=== PATIENT | male | born 1975 | race Caucasian/White ===

== ENCOUNTER 2023-04-04 08:52 | Outpatient (AMB) | payer OTHER, SELFPAY ==
--- NOTE | 2023-04-04 08:56 | A.OFFVIS_ITS ---
Intake Vital Signs 04/04/23 08:59 Height 5 ft 8.5 in Weight 210 lb BMI 31.5 BP 142/94 H Blood Pressure Location Lt brachial Position Sitting Pulse 79 Intake Visit Reasons: Colonoscopy Screening Intake Note: Patient new consult for 1st pre colonoscopy screening. Patient denies any GI issues. 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 Accompanied by: Self / Same As Patient Allergies No Known Allergies [No Known Allergies*] Allergy (Verified 04/04/23 08:56) Medication List - Last Reconciled 04/04/23 by Skylar Baez PA-C multivitamin 1 tab PO DAILY HPI HPI Comments History of Present Illness Details 48-year-old male referred for index screening colonoscopy He has no GI complaints Normal bowel pattern good appetite No cardiac or respiratory issues No family history GI cancer No nausea, vomiting, hematemesis, hematochezia fever chills PFSH Medical History Hypercholesterolemia Overweight (BMI 25.0-29.9) Surgical History Hx laparoscopic cholecystectomy Family History Maternal Uncle Non-Hodgkin lymphoma Mother No problems noted. Father No problems noted. Brother No problems noted. Son No problems noted. Daughter No problems noted. Social History Housing: House Alcohol intake: current Patient Tobacco Use Status: Never used Tobacco e-Cigarette/Vaping Use: Never Used Second Hand Smoke Exposure: No Current occupational status: employed Cognitive needs: No Hearing needs: No Vision needs: Yes Review of Systems Const All systems reviewed & are unremarkable except as noted in HPI and below Card Denies chest pain and Denies dyspnea Resp Denies dyspnea GI Denies abdominal pain, Denies change in stool character and Denies heartburn Physical Exam Vital Signs: Last Vital Signs Pulse 79 04/04/23 08:59 BP 142/94 H 04/04/23 08:59 BMI result Body Mass Index 31.5 Const General: cooperative, healthy appearing, comfortable and no acute distress Orientation/consciousness: patient oriented x3 Limitations: no limitations Resp Effort & Inspection: normal respiratory effort and able to speak in complete sentences Auscultation: clear to auscultation bilaterally, no rales, no rhonchi and no wheezes Cardio Rate: regular rate Rhythm: regular rhythm Heart sounds: S1 normal heart sound present and S2 normal heart sound present GI Palpation (GI): Soft to palpation and nontender Auscultation: normal bowel sounds Neuro General: patient oriented x3 Extrem General: Yes full ROM Psych Appearance: grossly normal and well kempt Mental Status: mental status grossly normal Speech and movement: Normal speech and movement present and Clear speech present Affect: normal affect Attitude: cooperative Thought process: Normal thought process present Thought content: Normal thought content present Insight: Good insight present (Psych) Judgement: Good judgement present (Psych) Assessment & Plan Assessment & Plan (1) Colon cancer screening: Comment: Index screening colonoscopy no GI complaints no family history GI cancer Code(s): Z12.11 - Encounter for screening for malignant neoplasm of colon Plan: Discussed procedure, indications, rare risks, need for escorted due to anesthesia Plan Index screening colonoscopy MiraLax Gatorade prep Orders: Orders Colonoscopy - GI Use Only Today Z12.11 - Encounter for screening for malignant neoplasm of colon Medications: New bisacodyl (Dulcolax (bisacodyl)) Take 4 tablets by mouth at 12:00pm the day before your procedure. 20 mg (4 x 5 mg) PO ONCE 1 day 4 tabs 0RF colonoscopy prep Z12.11 - Encounter for screening for malignant neoplasm of colon polyethylene glycol 3350 (Miralax) Take as directed by mouth the day before your procedure. 238 grams PO ONCE 1 day 238 grams 0RF laxative effect Patient Instructions: For 48-year-old male referred index screening colonoscopy no GI complaints MiraLax Gatorade prep literature given Encouraged to call questions or concerns Appreciate the opportunity assist in the care this pleasant Gent Coding Level of Care Code New Pt Level 3 (96883) Diagnoses Colon cancer screening Z12.11 Time Spent (min) 25
[2023-04-04 08:59] VITALS: BP 142/94; PULSE 79; BMI 31.5
--- NOTE | 2023-04-04 09:00 | MHC.OFFVIS ---
Intake Intake Visit Reasons: Colonoscopy Screening Allergies No Known Allergies [No Known Allergies*] Allergy (Verified 04/04/23 08:56) PFSH Medical History (Updated 02/10/23 @ 10:57 by Prasad Briseno MD) Hypercholesterolemia Overweight (BMI 25.0-29.9) Surgical History Hx laparoscopic cholecystectomy Family History Maternal Uncle Non-Hodgkin lymphoma Mother No problems noted. Father No problems noted. Brother No problems noted. Son No problems noted. Daughter No problems noted. Social History Housing: House Alcohol intake: current Patient Tobacco Use Status: Never used Tobacco e-Cigarette/Vaping Use: Never Used Second Hand Smoke Exposure: No Current occupational status: employed Cognitive needs: No Hearing needs: No Vision needs: Yes Coding Diagnoses
== END 2023-04-04 09:26 | disposition home or self-care (01) ==
PROVIDERS: PCP Internal Medicine; Visit Provider Physician Assistant
DX: Z01.818 Encounter for other preprocedural examination (principal); Z12.11 Encounter for screening for malignant neoplasm of colon
CPT/HCPCS: S0285

== ENCOUNTER → 2023-04-04 08:52 | Outpatient (BNVA) | payer OTHER, SELFPAY | PROVIDERS: PCP Internal Medicine; Visit Provider Physician Assistant ==

== ENCOUNTER 2023-07-11 07:26 | Day surgery (SDC) | payer OTHER, SELFPAY ==
[2023-07-07 14:47] VITALS: BMI 31.5
--- NOTE | 2023-07-11 07:38 | P.HPSUR_ITS ---
Pre-Procedural Eval Section A Date of Service: 07/11/23 The patient is an INPATIENT: No The History & Physical has been completed within 30 days and I have reviewed it.: No Section B Chief Complaint: Colon cancer screening Relevant Family History (Specify if Yes): No Relevant Social History: None Present Medications: see Short Stay Collaborative assessment Medical History: Significant History (Hypercholesterolemia Overweight (BMI 25.0- 29.9)) History of Previous Operations: Relevant previous surgery/procedure and date(s) (History of laparoscopy cholecystectomy) Allergies: Allergies Allergy/AdvReac Type Severity Reaction Status Date / Time No Known Allergies Allergy Verified 04/04/23 08:56 [No Known Allergies*] Plan Diagnosis/Plan: Unchanged I have reviewed the history and physical and performed a pertinent physical examination on my patient. No changes have occurred unless specified. Time Spent With Patient Time: Total time managing care of this patient today ____ minutes.
[2023-07-11 07:46] VITALS: BP 143/100; PULSE 95; RESP 20; TEMP 36.2; O2SAT 95
--- NOTE | 2023-07-11 08:06 | P.CONAN_ITS ---
[facility] Active Problems Active Problems: All Active Problems (Updated 04/04/23 @ 09:51 by Skylar Baez PA-C) Colon cancer screening (Acute) Tinea versicolor (Acute) Physical exam, annual (Acute) Overweight (BMI 25.0-29.9) (Acute) Hypercholesterolemia (Acute) Past Medical History Medical History (Updated 04/04/23 @ 09:51 by Skylar Baez PA-C) Overweight (BMI 25.0-29.9) Hypercholesterolemia Family History Family History Maternal Uncle Non-Hodgkin lymphoma Mother No problems noted. Father No problems noted. Brother No problems noted. Son No problems noted. Daughter No problems noted. Family history of problems with anesthesia: No Surgical History Surgical History (Updated 07/07/23 @ 14:47 by Shira Lamb RN) Hx laparoscopic cholecystectomy History of Problems with Anesthesia: No Social History Social History Housing: House Alcohol intake: current Patient Tobacco Use Status: Never used Tobacco e-Cigarette/Vaping Use: Never Used Second Hand Smoke Exposure: No Advance Directives: No Advance Directives Information Provided: Yes Current occupational status: employed Cognitive needs: No Hearing needs: No Vision needs: Yes Meds Allergies Allergy/AdvReac Type Severity Reaction Status Date / Time No Known Allergies Allergy Verified 04/04/23 08:56 [No Known Allergies*] Active Medications: Current Medications Lactated Ringer's (Lr) 1,000 mls @ 50 mls/hr IVCONT .Q20H [facility] Home Medications Medication Instructions Recorded Confirmed Last Taken Type multivitamin 1 tab PO DAILY 06/03/20 07/07/23 Unknown History Exam Exam Date and Time: July 11, 2023 08 Height,Weight and Vital Signs: Height 5 ft 8.5 in Weight 95.254 kg Last Vital Signs Temp 97.2 F 07/11/23 07:46 Pulse 95 07/11/23 07:46 Resp 20 07/11/23 07:46 BP 143/100 H 07/11/23 07:46 Pulse Ox 95 07/11/23 07:46 O2 Del Method Room Air 07/11/23 07:46 Airway Mallampati Class: II TM Dist: >3cm Neck ROM: Full Heart: rrr Lungs: cta Assessment and Plan Assessment Anesthesia Assessment: Anesthesia Plan Discussed and Chart Reviewed Final Anesthetic Review Family History of Problems with Anesthesia: No History of Problems with Anesthesia: No NPO: Yes ASA Class: I Final Preanesthetic Review: No Changes in Pt Med Stat, Meds/Allgs Chart Reviewed and Consent Obtained/Reviewed Patient Risk: Intermediate Procedure Risk: Intermediate Anesthetic Plan Anesthetic Plan: MAC: Disposition: Standard PACU
[2023-07-11] MEDS: Lactated Ringers 1,000 ML 50 ML IVCONT (08:32)
--- NOTE | 2023-07-11 08:37 | W.PM.OPN ---
Operative Note Operative Note Date of Service: 07/11/23 Narrative: COLONOSCOPY TILL CECUM Pre-op diagnosis: Colon cancer screening (1st colonoscopy) Post-op diagnosis:? Diverticulosis, hemorrhoids Endoscopist:? Douglas Enriquez MD Anesthesia:?MAC Consent: Indications for the procedure and potential complications of bleeding, perforation, reaction to medications and missed diagnosis were discussed with the patient and informed consent was obtained. Instrument: Olympus PCF H 190 L variable stiffness pediatric colonoscope Monitoring: Vital signs and clinical assessment, intermittent blood pressure monitoring, continuous EKG monitoring, Pulse oximetry and Carbon Dioxide monitoring were done throughout the procedure. Please see anesthesia flowsheet. Colon withdrawl time was 13 minutes. Procedure: The patient was placed in the left lateral decubitis position and pre-procedure medications were administered. After a digital rectal examination of the ano-rectum, the video colonoscope was inserted into the rectum and advanced through the colon to the cecum. The colonoscope was slowly withdrawn in a retrograde panoramic fashion and the colon mucosa was carefully examined including a retroflexed view of the rectum. Findings and interventions are described below. Procedure Difficulty: Without difficulty Findings: Terminal Ileum: Not evaluated Cecum: Normal Ascending Colon: Normal Transverse Colon: Normal Descending Colon: Normal Sigmoid Colon: Moderate diverticulosis Rectum: Normal Ano-rectum: Moderate internal hemorrhoids Colon preparation: Good Impression and Post Procedure Diagnosis: Colonoscopy Findings: No polyps were detected Moderate diverticulosis seen in the sigmoid colon Moderate hemorrhoids on retroflexed exam. Plan: Patient has an appointment on 07/25/23 in the [facility] with [facility]. Repeat Colonoscopy in 10 years. Diverticulosis handout was given in the discharge area
[2023-07-11 09:10] VITALS: BP 102/57; PULSE 90; RESP 15; TEMP 36.2; O2SAT 92
[2023-07-11 09:25] VITALS: BP 105/77; PULSE 94; RESP 17; TEMP 36.3; O2SAT 92
== END 2023-07-11 10:31 | disposition home or self-care (01) ==
PROVIDERS: PCP Internal Medicine; Visit Provider Internal Medicine Gastroenterology
PROC: 0DJD8ZZ Inspection of Lower Intestinal Tract, Via Natural or Artificial Opening Endoscopic (ICD-10-PCS; CPT 45378; principal; 2023-07-11 08:30)
DX: Z12.11 Encounter for screening for malignant neoplasm of colon (principal); K57.30 Diverticulosis of large intestine without perforation or abscess without bleeding; K64.8 Other hemorrhoids; E78.00 Pure hypercholesterolemia, unspecified; Z90.49 Acquired absence of other specified parts of digestive tract; Z79.899 Other long term (current) drug therapy
CPT/HCPCS: 45378; J2704

== ENCOUNTER → 2023-07-11 07:26 | Outpatient (BNV) | payer OTHER, SELFPAY | PROVIDERS: PCP Internal Medicine; Visit Provider Internal Medicine Gastroenterology | DX: Z12.11 Encounter for screening for malignant neoplasm of colon (principal); K57.30 Diverticulosis of large intestine without perforation or abscess without bleeding; K64.8 Other hemorrhoids | CPT/HCPCS: 45378 ==

== ENCOUNTER 2024-05-03 15:36 | Outpatient (AMB) | payer BC, SELFPAY ==
--- NOTE | 2024-05-03 15:42 | MHC.PC.OV ---
Vital Signs 05/03/24 15:51 Height 5 ft 8.5 in Weight 214 lb 8 oz BMI 32.1 BP 136/80 Blood Pressure Location Lt brachial Position Sitting Respiration 16 Pulse 84 Pulse Source Pulse Oximeter Temp 97.3 F Temp Source Tympanic Pulse Oximetry (%) 95 Oxygen Delivery Method Room Air Intake Visit Reasons: Xfer care from Dr. Briseno. Intake Note: Establish care Allergies No Known Allergies [No Known Allergies*] Allergy (Verified 05/03/24 15:43) Medication List - Last Reconciled 05/03/24 by Rasheed Mederos MD multivitamin 1 tab PO DAILY Tobacco use date assessed: 05/03/24 Dental Screening Dental Screen Date: 05/03/24 Did you have a dental visit in the last 12 months?: Yes Did you have a dental problem in the last 6 months where you did not have access to dental care?: No Was dental information given to patient?: Patient has dentist HPI Xfer care from Dr. Briseno. HPI Details Transfer of Care ?? Prior PCP:?Dr. Briseno Last office visit/CPE:?Last CPE 02/18 Acute issue(s):? Stye L elbow tendonitis ?? PMHx:?L Inguinal hernia. SurgHx:?L Inguinal hernia, L3-4 discectomy, GB. FHx:? Dad: DM. Uncle: NHL. GF: Emphysema SocHx: Nonsmoker. EtOH: wine 1-2 about 2 x a week. No drugs PFSH Medical History (Updated 05/03/24 @ 16:12 by Emigdio Petersen) Overweight (BMI 25.0-29.9) Hypercholesterolemia Surgical History (Updated 07/07/23 @ 14:47 by Shira Lamb RN) Hx laparoscopic cholecystectomy Family History Maternal Uncle Non-Hodgkin lymphoma Mother No problems noted. Father No problems noted. Brother No problems noted. Son No problems noted. Daughter No problems noted. 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 1. Little interest or pleasure in doing things: not at all 2. Feeling down, depressed, or hopeless: not at all 3. Trouble falling or staying asleep, or sleeping too much: not at all 4. Feeling tired or having little energy: not at all 5. Poor appetite or overeating: not at all 6. Feeling bad about yourself - or that you are a failure or have let yourself or your family down: not at all 7. Trouble concentrating on things, such as reading the newspaper or watching television: not at all 8. Moving or speaking so slowly that other people could have noticed. Or the opposite - being so fidgety or restless that you have been moving around a lot more than usual: not at all 9. Thoughts that you would be better off or of hurting yourself in some way: not at all Total score: 0 Depression Screening Interpretation: Negative Depression Screening Done: Yes 01600 - PHQ-9 Billing: Yes Source: Developed by Drs. Noel Pascal, Radha Robertson, Rahul Brooks and colleagues, with an educational malika from [employer] 1. Thrive Questionnaire Date Thrive assessed: 05/03/24 I am a: Patient What is your living situation today?: I have a steady place to live Within the past 12 months, did the food you bought not last and you didn't have the money to get more?: Never true Within the past 12 months, did you worry whether your food would run out before you got money to buy more?: Never true Do you have trouble paying for medicines?: No Do you have trouble getting transportation to medical appointments?: No Do you have trouble paying your heating and electricity bill?: No Do you have trouble taking care of your child, family member or friend?: No Do you have trouble with day-to-day activities such as bathing, preparing meals, shopping, managing finances, etc.?: No Are you currently unemployed and looking for a job?: No Are you interested in more education?: No Please select the resources that you would like help with: None Currently or been in a relationship where the following occur: No concerns reported THRIVE Score: 0 AUDIT C Alcohol Use Questionnaire (AUDIT-C) 1. How often do you have a drink containing alcohol?: 2-3 times a week 2. How many drinks containing alcohol do you have on a typical day when you are drinking?: 1 or 2 3. How often do you have six or more drinks on one occasion?: Weekly Total Score: 6 Score Reviewed/Action Taken: Yes MONET-7 AMB Questionnaire MONET-7 Date MONET - 7 assessed: 05/03/24 Feeling nervous, anxious, or on edge: 0 = Not at all Not being able to stop or control worryin = Not at all Worrying too much about different things: 0 = Not at all Trouble relaxin = Not at all Being so restless that it is hard to sit still: 0 = Not at all Becoming easily annoyed or irritable: 0 = Not at all Feeling afraid as if something awful might happen: 0 = Not at all Total MONET-7 score (0-4 normal; 5-9 mild; 10-14 moderate; 15-21 severe): 0 Source: Developed by Drs. Noel Pascal, Radha Robertson, Rahul Brooks and colleagues, with an educational malika from [employer] 1. MONET-7 Assessment Billing MONET-7 Assessment Tool: MONET-7 Assessment 20182 Review of Systems Const Denies chills, Denies fatigue, Denies fever(s), Denies headache(s) and Denies weakness ENT Denies dizziness and Denies headache(s) Card Denies chest pain, Denies lightheadedness, Denies dyspnea and Denies other (Palpitations) Resp Denies cough, Denies dyspnea, Denies wheezing and Denies other ( shortness of breath) Musc Denies numbness and Denies tingling Neuro Denies dizziness, Denies headache(s), Denies numbness, Denies tingling, Denies paresthesias and Denies weakness Psych Denies anxiety and Denies depression Endo Denies fatigue Aller/Immun Denies wheezing Physical exam (Primary Care) Vital Signs: Last Vital Signs Temp 97.3 F 05/03/24 15:51 Pulse 84 05/03/24 15:51 Resp 16 05/03/24 15:51 BP 136/80 05/03/24 15:51 Pulse Ox 95 05/03/24 15:51 Oxygen Delivery Method Room Air 05/03/24 15:51 BMI result Body Mass Index 32.1 Tobacco/Smoking Status: Tobacco use Status Tobacco use date assessed 05/03/24 05/03/24 15:50 Patient Tobacco Use Status Never used Tobacco 05/03/24 15:50 e-Cigarette/Vaping Use Never Used 05/03/24 15:50 PHQ-9: PHQ-9 Score PHQ-9: Total score 0 05/03/24 16:01 Depression Screening Interpretation: Negative Thrive Assessment: Date of Thrive Assessment Date Thrive assessed 05/03/24 05/03/24 15:50 Currently or been in a relationship where the following occur: No concerns reported Const General: no acute distress and well developed Nutritional Appearance: well nourished Orientation/consciousness: patient oriented x3 HENMT Head: Yes normocephalic and Yes atraumatic Eyes General: appearance normal, both eyes and all related structures Pupils: Equal, round and reactive pupils present EOM: EOMs intact bilaterally Resp Effort & Inspection: normal respiratory effort Auscultation: clear to auscultation bilaterally Cardio Rate: regular rate Rhythm: regular rhythm Heart sounds: S1 normal heart sound present, S2 normal heart sound present, no gallops, no murmurs and no rubs Neuro General: patient oriented x3 and gait normal Cranial nerves: Yes Equal, round and reactive pupils present Psych Affect: normal affect Assessment and Plan Assessment & Plan (1) Tendonitis of elbow, left: Code(s): M77.8 - Other enthesopathies, not elsewhere classified Plan: Recommended?relative?rest Ice/heat NSAIDs He?can?use?a?forearm?band/brace If?not?improving?he?will?let?me?know?and?we?can?start?occupational?therapy (2) Stye: Code(s): H00.019 - Hordeolum externum unspecified eye, unspecified eyelid Plan: Stye?at?left?eye He?is?already?undergoing?treatment?with?his?ophthalmology Follow-up?with?your?eye?doctor?as?recommended (3) History of inguinal hernia: Code(s): Z87.19 - Personal history of other diseases of the digestive system Plan: History?of?left?inguinal?hernia?repair Patient?notes?some?twinge?of?discomfort?at?right?inguinal?region?but?declines?treatment?or?investigation?today He?can?make?an separate?appointment?to?evaluate?further?if?this?worsens. Will?follow-up?further?at?his?upcoming?physical. (4) Laboratory exam ordered as part of routine general medical examination: Code(s): Z00.00 - Encounter for general adult medical examination without abnormal findings Plan: Check?labs Orders: Orders Comprehensive [place]. Panel Fast Today Z00.00 - Encounter for general adult medical examination without abnormal findings TSH reflex Free T4 Today Z00.00 - Encounter for general adult medical examination without abnormal findings Vitamin B12 and Folate Today E53.8 - Deficiency of other specified B group vitamins Lipid Panel Today Z00.00 - Encounter for general adult medical examination without abnormal findings Microalbumin, Random (w Creat) Today I10 - Essential (primary) hypertension Prostate Specific Antigen Scr Today Z12.5 - Encounter for screening for malignant neoplasm of prostate UA and rflx microscopic Today Z00.00 - Encounter for general adult medical examination without abnormal findings Vitamin D 25-OH Total Today E55.9 - Vitamin D deficiency, unspecified Coding Level of Care Code New Pt Level 3 (48979) Diagnoses Tendonitis of elbow, left M77.8 Stye H00.019 History of inguinal hernia Z87.19 Laboratory exam ordered as part of routine general medical examination Z00.00 Additional Codes MONET-7 Assessment Billing - MONET-7 Assessment Tool: MONET-7 Assessment 26982 ([id number])
[2024-05-03 15:51] VITALS: BP 136/80; PULSE 84; RESP 16; TEMP 36.3; O2SAT 95; BMI 32.1
== END 2024-05-03 16:18 | disposition home or self-care (01) ==
PROVIDERS: PCP Family Medicine; Visit Provider Family Medicine
DX: M77.8 Other enthesopathies, not elsewhere classified (principal); H00.016 Hordeolum externum left eye, unspecified eyelid; Z87.19 Personal history of other diseases of the digestive system
CPT/HCPCS: 99213

== ENCOUNTER 2024-07-10 07:39 | Outpatient (REF) | payer BC, SELFPAY ==
--- NOTE | ~2024-07-10 | US_ITS ---
EXAMINATION: US RIGHT LOWER QUADRANT, LIMITED/FOLLOW UP CLINICAL INFORMATION: Unilateral right lower quadrant hernia. History of left inguinal hernia repair with new right lower quadrant pain. COMPARISON: None available. TECHNIQUE: High frequency linear ultrasound transducer was used to examine the area of clinical concern. Images were performed both in the supine and upright positions. Valsalva maneuvers were also utilized. FINDINGS: A right groin hernia is seen measuring about 3.6 x 2.8 cm. This appears to contain predominantly fat, although I cannot exclude the presence of bowel. US/US pelvic limited IMPRESSION: Right groin hernia. Electronically signed by: Jean Tyson MD 07/11/2024 12:41 PM [facility]
== END 2024-07-10 07:40 | disposition home or self-care (01) ==
LOC: HO.US 07:39
PROVIDERS: PCP Family Medicine; Visit Provider Family Medicine
DX: K40.90 Unilateral inguinal hernia, without obstruction or gangrene, not specified as recurrent (principal)
CPT/HCPCS: 76857

== ENCOUNTER 2024-08-09 09:21 | Outpatient (AMB) | payer BC, SELFPAY ==
--- NOTE | 2024-08-09 09:24 | A.OFFVIS_ITS ---
Vital Signs 08/09/24 09:35 Height 5 ft 8.5 in Weight 221 lb 8 oz BMI 33.2 BP 160/99 H Blood Pressure Location Lt brachial Position Sitting Pulse 83 Intake Visit Reasons: right groin hernia Intake Note: Patient is seen in office for evaluation of a right groin hernia. Pt c/o: feels a lump on the right groin, worse for the past 5 wks, onset 3 months, does heavy lifting for work, reducible, had prior one fix on the left side us pelvis:07/10/24 [employer] Facility Supervisor Required: No Accompanied by: Self / Same As Patient Allergies No Known Allergies [No Known Allergies*] Allergy (Verified 08/09/24 09:30) Medication List - Last Reconciled 08/09/24 by Marcel Rivera MD multivitamin 1 tab PO DAILY HPI Comments Details: 49-year-old male patient presenting for evaluation of a right inguinal hernia which he 1st noted approximately 3 months ago but feels over the past month has increased in severity. 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 The pain seems to increase with lifting and prolonged standing. He is currently wearing a truss which seems to help with the discomfort. He reports a previous history of a left inguinal hernia repaired approximately 10 years ago. He denies any symptoms in the left groin. Denies nausea, vomiting, fever, chills, diarrhea or constipation. FOR[facility] Medical History Overweight (BMI 25.0-29.9) Hypercholesterolemia Surgical History Hx of vasectomy Hx of discectomy Hx of left inguinal hernia repair Hx laparoscopic cholecystectomy Family History Maternal Uncle Non-Hodgkin lymphoma Mother No problems noted. Father No problems noted. Brother No problems noted. Son No problems noted. Daughter No problems noted. 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 Cognitive needs: No Hearing needs: No Vision needs: Yes Review of Systems Const All systems reviewed & are unremarkable except as noted in HPI and below Physical Exam Vital Signs: Last Vital Signs Pulse 83 08/09/24 09:35 BP 160/99 H 08/09/24 09:35 BMI result Body Mass Index 33.2 Const General: cooperative and no acute distress Nutritional Appearance: well nourished Orientation/consciousness: patient oriented x3 Limitations: no limitations HEENT Head: Yes normocephalic and Yes atraumatic Ears: hearing grossly normal bilaterally Resp Effort & Inspection: normal respiratory effort, no audible wheezes, no cough and no respiratory distress Cardio Jugular venous distension: no JVD GI Other: Palpable right inguinal hernia noted in the standing position with Valsalva maneuvers. Hernia easily reduces with light pressure. No hernia noted in the left groin. Inspection: Yes normal to inspection Skin Other: Warm, dry, no rash Neuro General: patient oriented x3 Extrem General: Yes no clubbing, cyanosis or edema Assessment & Plan Assessment & Plan (1) Right inguinal hernia: Code(s): K40.90 - Unilateral inguinal hernia, without obstruction or gangrene, not specified as recurrent Category: Medical Plan 49-year-old male patient presenting for evaluation of a right inguinal hernia. This has been progressing over the past 3 months and is now causing more discomfort. On examination he does indeed have a reducible right inguinal hernia. I recommended repair of this right inguinal hernia as an elective procedure using mesh. I reviewed the procedure, risks, and alternatives of repair of the right inguinal hernia with mesh he consents to the surgery. Coding Level of Care Code New Pt Level 4 (24473) Diagnoses Right inguinal hernia K40.90
[2024-08-09 09:35] VITALS: BP 160/99; PULSE 83; BMI 33.2
== END 2024-08-09 09:46 | disposition home or self-care (01) ==
PROVIDERS: PCP Family Medicine; Visit Provider Surgery
DX: K40.90 Unilateral inguinal hernia, without obstruction or gangrene, not specified as recurrent (principal)
CPT/HCPCS: 99204

== ENCOUNTER 2024-08-24 13:43 | Outpatient (AMB) | payer BC, SELFPAY ==
--- OUTSIDE RECORDS SUMMARY | 2024-08-24 13:45 | XMS_ITS | Data Portability ---
Author Organization [facility], , [facility] Address [address] [place] [address] Assessment No assessment recorded. Plan of Treatment Reminders Order Date Submit Date Provider Last Modified By Organization Details Last Modified Time Details Appointments None record ed. Lab None record ed. Referral None record ed. Procedures None record ed. Surgeries None record ed. Imaging None record ed. Medication Orders None record ed. Patient TargetsNo targets recorded. Patient InstructionsNo instructions recorded. Reason for Referral None Reported. Problems Name Problem SNOMED Code Status Onset Date Resolution Date Notes Provider Name and Address Organization Details Recorded Time [facility] 17920199 Active 004 Not Available [facility] 03:12:28 Problem Notes None recorded. Medical Equipment None Reported. Vitals None Recorded Social History None recorded. Functional Status None recorded. Mental Status None recorded. Family History Nothing Reported. Medical History No medical history recorded. Past Encounters Encounter ID Performer Location Encounter Start Date Encounter Closed Date Diagnosis/Indication Diagnosis SNOMED-CT Code Diagnosis ICD10 Code [id number] Physical [address] [address] 07/08/2004 08:56:21 07/09/2004 08:30:03 [id number] [address] 07/13/2004 08:20:23 07/13/2004 08:34:18 [id number] Physical [facility], [address] [address] 07/15/2004 13:57:45 09/18/2008 02:02:29 [id number] Physical [address] [address] 07/20/2004 08:08:17 07/20/2004 08:36:34 [id number] [address] [address] 07/22/2004 08:32:24 09/18/2008 02:02:29 Health Concerns Section Related Observation LastModified by Organization Detai ls LastModified Time None Recorded Concern Status LastModified by Organization Details LastModified Time None Recorded Advance Directives Directive None Recorded Payers Encounter Date Sequence Insurance Name Policy Number Policy Howard Covered Member ID Howard Member ID Guarantor Name 07/08/2004 2 [facility] [id number] Marco Monica [id number] Marco Monica 07/13/2004 1 [facility] ([facility]) [id number] Marco Monica [id number] Marco Monica 07/15/2004 1 [facility] ([facility]) [id number] Marco Monica [id number] Marco Monica 07/20/2004 1 [facility] ([facility]) [id number] Marco Monica [id number] Marco Monica 07/22/2004 1 [facility] ([facility]) [id number] Marco Monica [id number] Marco Monica
--- NOTE | 2024-08-24 14:25 | AM.OFFWIN_ITS ---
Intake Vital Signs 08/24/24 14:26 Weight 102.058 kg BP 140/106 H Blood Pressure Location Rt brachial Position Sitting Pulse 83 Pulse Source Pulse Oximeter Pulse Oximetry (%) 95 Oxygen Delivery Method Room Air Intake Visit Reasons: EP-cough Intake Note: Patient here for cough that has been present for about 3 weeks. Patient Tobacco Use Status: Never used Tobacco Allergies No Known Allergies [No Known Allergies*] Allergy (Verified 08/24/24 14:26) Do you need a note to return to daycare/school/sports/work: No HPI HPI Comments History of Present Illness Details 1431 49 year old male presents w/ productive cough X 3 weeks not improving. He reports a few weeks ago it felt like it was getting better, however, seems to actually be worsening. No sick contacts. Denies CP, JI, vision changes, dizziness, weakness, n/v/abd pain/ diarrhea, fevers chills PE benign Hx and pe concerning for bronchitis. Unlikely PE, acs, dissection, AAA. HTN likely due to acute bronchitis unlikely hypertensive urgency/emergency no signs of stroke Plan- atbx, prednsione, inhaler. Sx ongoign > 1 week no indication for viral testing. [facility] Medical History Overweight (BMI 25.0-29.9) Hypercholesterolemia Surgical History Hx of vasectomy Hx of discectomy Hx of left inguinal hernia repair Hx laparoscopic cholecystectomy Family History Maternal Uncle Non-Hodgkin lymphoma Mother No problems noted. Father No problems noted. Brother No problems noted. Son No problems noted. Daughter No problems noted. 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 Oriented X3.? No acute distress.? Head: Normocephalic, atraumatic, no step-offs or deformities Eyes: Pupils equal, round and reactive to light.? CVS: Normal heart rate and rhythm.? Pulses normal.? Respiratory: No respiratory distress.? Breath sounds normal.? Abdomen: Soft and nontender.? Skin: Skin warm and dry.? Normal skin color.? Normal skin turgor.? Extremities: No lower extremity edema.? No calf ttp. 5/5 strength to bilateral upper and lower extremities Neuro: Oriented X 3.? No motor deficit.? No sensory deficit. CN 2-12 intact Assessment & Plan Assessment & Plan (1) Bronchitis: Code(s): J40 - Bronchitis, not specified as acute or chronic Plan Take your medications as prescribed. If you were prescribed antibiotics today, it is important that you take your medication to their entirety, do not skip any doses, do not finish them early. Follow-up with your primary care provider this week. Return to the emergency department with new or worsening symptoms. In case of emergency call 911 Medications: New benzonatate 100 mg PO BID PRN 14 caps 0RF cough doxycycline hyclate 100 mg PO BID 14 caps 0RF 7 days prednisone 40 mg (2 x 20 mg) PO DAILY 10 tabs 0RF 5 days albuterol sulfate 90 mcg/actuation 2 puffs inhalation Q6H PRN 6.7 grams 0RF shortness of breath or wheezing Coding Level of Care Code Est Pt Level 3 (26427) Diagnoses Bronchitis J40
[2024-08-24 14:26] VITALS: BP 140/106; PULSE 83; O2SAT 95
== END 2024-08-24 15:12 | disposition home or self-care (01) ==
PROVIDERS: PCP Family Medicine; Visit Provider Physician Assistant
DX: J40 Bronchitis, not specified as acute or chronic (principal)

== ENCOUNTER → 2024-08-24 13:43 | Outpatient (BNVA) | payer BC, SELFPAY | PROVIDERS: PCP Family Medicine; Visit Provider Physician Assistant ==

== ENCOUNTER 2024-09-05 09:13 | Day surgery (SDC) | payer BC, SELFPAY ==
[2024-09-03 11:12] VITALS: BMI 33.3
--- NOTE | 2024-09-04 08:57 | HO.ANESPROP2 ---
Documented by User: Liliane Beltran NP 09/04/24 08:57 HPI - Anesthesia Eval Consult details Narrative: 49yo M for Right Open Hernia Inguinal Reducible with mesh PMFSH Active Problems Active Problems: All Active Problems Right inguinal hernia (Acute) Left inguinal hernia (Acute) Laboratory exam ordered as part of routine general medical examination (Acute) History of inguinal hernia (Acute) Tendonitis of elbow, left (Acute) Stye (Acute) Colon cancer screening (Acute) Tinea versicolor (Acute) Physical exam, annual (Acute) Overweight (BMI 25.0-29.9) (Acute) Hypercholesterolemia (Acute) Past Medical History Medical History Overweight (BMI 25.0-29.9) Hypercholesterolemia Family History Family History Maternal Uncle Non-Hodgkin lymphoma Mother No problems noted. Father No problems noted. Brother No problems noted. Son No problems noted. Daughter No problems noted. Family history of problems with anesthesia: No Surgical History Surgical History H/O colonoscopy Hx of vasectomy Hx of discectomy Hx of left inguinal hernia repair Hx laparoscopic cholecystectomy History of Problems with Anesthesia: No Social History Social History Housing: House Are you a primary hospice care consultant to a significant other at home: No Do you presently have visiting nurse or other home services: No Alcohol intake: current Alcohol intake frequency: holidays/special occasions only Patient Tobacco Use Status: Never used Tobacco e-Cigarette/Vaping Use: Never Used Second Hand Smoke Exposure: No Use of substances other than those prescribed or required for medical reasons: No Have you been hit, kicked, punched, or otherwise hurt by someone within the past year? 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 Cognitive needs: No Hearing needs: No Vision needs: Yes Meds Allergies Allergy/AdvReac Type Severity Reaction Status Date / Time No Known Allergies Allergy Verified 09/05/24 09:40 [No Known Allergies*] Home Medications ?Medication ?Instructions ?Recorded ?Confirmed ?Last Taken ?Type multivitamin 1 tab PO DAILY 06/03/20 09/03/24 Unknown History Exam Height,Weight and Vital Signs: Height 5 ft 8.5 in Weight 100.698 kg Assessment and Plan Assessment Anesthesia Assessment: Chart Reviewed Final Anesthetic Review Family History of Problems with Anesthesia: No History of Problems with Anesthesia: No Documented by User: Aracelis Su MD 09/05/24 12:05 PMFSH Past Medical History Medical History Overweight (BMI 25.0-29.9) Hypercholesterolemia Family History Family History Maternal Uncle Non-Hodgkin lymphoma Mother No problems noted. Father No problems noted. Brother No problems noted. Son No problems noted. Daughter No problems noted. Surgical History Surgical History H/O colonoscopy Hx of vasectomy Hx of discectomy Hx of left inguinal hernia repair Hx laparoscopic cholecystectomy Social History Social History Housing: House Are you a primary hospice care consultant to a significant other at home: No Do you presently have visiting nurse or other home services: No Alcohol intake: current Alcohol intake frequency: holidays/special occasions only Patient Tobacco Use Status: Never used Tobacco e-Cigarette/Vaping Use: Never Used Second Hand Smoke Exposure: No Use of substances other than those prescribed or required for medical reasons: No Have you been hit, kicked, punched, or otherwise hurt by someone within the past year? 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 Cognitive needs: No Hearing needs: No Vision needs: Yes Meds Allergies Allergy/AdvReac Type Severity Reaction Status Date / Time No Known Allergies Allergy Verified 09/05/24 09:40 [No Known Allergies*] Home Medications ?Medication ?Instructions ?Recorded ?Confirmed ?Last Taken ?Type multivitamin 1 tab PO DAILY 06/03/20 09/03/24 Unknown History Exam Airway Mallampati Class: II TM Dist: >3cm Neck ROM: Full Loose/Missing/Broken Teeth: No Heart: RRR Lungs: CTA Assessment and Plan Assessment Anesthesia Assessment: Anesthesia Plan Discussed Final Anesthetic Review NPO: Yes ASA Class: II Final Preanesthetic Review: Meds/Allgs Chart Reviewed, Consent Obtained/Reviewed and Anes Risks/Benef Reviewed Patient Risk: Low Procedure Risk: Low Anesthetic Plan Anesthetic Plan: GA Disposition: Standard PACU
--- OUTSIDE RECORDS SUMMARY | 2024-09-05 09:17 | XMS_ITS | Data Portability ---
Author Organization [facility], , [facility] Address [address] [place] [address] Assessment No assessment recorded. Plan of Treatment [...] and Address Organization Details Recorded Time Sci[facility]a [id number] Active 004 Not Available [facility] 3 03:12:28 Problem Notes None recorded. Medical Equipment None Reported. Vitals None Recorded Social History None recorded. Functional Status None recorded. Mental Status None recorded. Family History Nothing Reported. Medical History No medical history recorded. Past Encounters Encounter ID Performer Location Encounter Start Date Encounter Closed Date Diagnosis/Indication Diagnosis SNOMED-CT Code Diagnosis ICD10 Code Diagnosis Note [id number] Physical [address] [address] 07/08/2004 08:56:21 07/09/2004 08:30:03 [id number] Physical [address] [address] 07/13/2004 08:20:23 07/13/2004 08:34:18 [id number] Physical [facility], [address] [address] 07/15/2004 13:57:45 09/18/2008 02:02:29 [id number] Physical [facility], [address] [address] 07/20/2004 08:08:17 07/20/2004 08:36:34 [id number] Physical [facility], [address] [address] 07/22/2004 08:32:24 09/18/2008 02:02:29 Health Concerns Section Related Observation LastModified by Organization Detai ls LastModified Time None Recorded Concern Status LastModified by Organization Details LastModified Time None Recorded Advance Directives Directive None Recorded Payers Encounter Date Sequence Insurance Name Policy Number Policy Howard Covered Member ID Howard Member ID Guarantor Name 07/08/2004 2 [facility] [id number] Marco Monica [id number] Marco Monica 07/13/2004 1 [facility] ([facility] [id number] Marco Monica [id number] Marco Monica 07/15/2004 1 [facility] ([facility] [id number] Marco Monica [id number] Marco Monica 07/20/2004 1 [facility] ([facility] [id number] Marco Monica [id number] Marco Monica 07/22/2004 1 [facility] ([facility]) [id number] Marco Monica [id number] Marco Monica
[2024-09-05 09:42] VITALS: BMI 32.5
[2024-09-05] MEDS: Lactated Ringers 1,000 ML 100 ML IVCONT (10:19)
--- NOTE | 2024-09-05 11:33 | MHC.SHP ---
Pre-Procedural Eval Section A - 24 Hr Update-Section A only Date of Service: 09/05/24 The patient is an INPATIENT: No Changes since office visit: Yes Patient answered all questions; No Cold of Flu in the past 2 weeks, No New Medical Problems and No Changes in Medication The patient has been examined within 24 hours of the surgical procedure. The History & Physical has been completed within 30 days and I have reviewed it.: No Section B - Complete if H&P > 30 days Chief Complaint: Unilateral inguinal hernia, without obstruction or Details of Present Illness: No change from previous visit, no abdominal pain Relevant Family History (Specify if Yes): No Relevant Social History: None Present Medications: see Short Stay Collaborative assessment Medical History: No relevant PMH History of Previous Operations: Relevant previous surgery/procedure and date(s) Allergies: Allergies Allergy/AdvReac Type Severity Reaction Status Date / Time No Known Allergies Allergy Verified 09/05/24 09:40 [No Known Allergies*] Review of Systems Sugical H&P ROS: Negative: Constitution, Cardiovascular, Respiratory, Neurological, Psychiatric, Hem-Onc, Allergic/Immunologic, Gastrointestinal, Genitourinary, Musculoskeletal, Integumentary, Endocrine and Eyes/Ears/Nose/Throat Exam Surgical H&P Exam: Normal: HEENT, Normal: Heart, Normal: Lungs, Normal: Extremities, Normal: Abdomen, Normal: Skin and Normal: Neurological Plan Diagnosis/Plan: Unchanged I have reviewed the history and physical and performed a pertinent physical examination on my patient. No changes have occurred unless specified. Time Spent With Patient Time: Total time managing care of this patient today ____ minutes.
--- NOTE | 2024-09-05 12:56 | W.PM.OPN ---
Operative Note Operative Note Date of Service: 09/05/24 Narrative: Preoperative diagnosis: Right inguinal hernia, reducible Postoperative diagnosis: Same Procedure: Repair of right inguinal hernia with mesh, reducible Surgeon: Marcel Rivera MD Head Of Partner Development: Hilda Vale PA-C Anesthesia: General LMA Indications for procedure: 49-year-old male patient presenting with complaints of a palpable lump in the right groin which is causing discomfort especially with lifting. 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 Operative findings: Patient was found to have a large indirect right inguinal hernia as well as a small direct right inguinal hernia. This was repaired using a large PHS mesh Specimen: Hernia sac Estimated blood loss: 2 mL Complications: None Procedure details: Patient was brought to the OR and placed in a supine position. After administering general anesthesia the patient's abdomen was prepped with ChloraPrep and draped in a sterile fashion. A surgical time-out was called the consent confirmed. Patient received preoperative antibiotics and Venodyne boots were in place. Local anesthesia consisting of 0.5% Sensorcaine was infiltrated over the right inguinal ligament. Incision was then made with a scalpel and carried out through subcutaneous tissue, past Amanuel's fashion up to the external oblique aponeurosis. Additional local was infiltrated below the aponeurosis. This was then incised with a scalpel widened with the Metzenbaum scissors. The spermatic cord was then dissected free from the surrounding inguinal canal retracted using a Qasim drain. A small direct inguinal hernia was identified in the inguinal floor. Fibers of the cremaster muscle were then and a large indirect sac was identified. This was dissected down to the internal ring. The sac was opened and its contents reduced. The sac was then ligated with a 0 Polysorb suture at the base. The sac was then excised and sent to pathology for further examination. Attention was then directed to the floor of the inguinal canal. The internal oblique and transversalis aponeurosis was then incised with electrocautery between Allis clamps. A preperitoneal space was then dissected using an open Ray-Bonita sponge. A large PHS mesh was then obtained. The circular underlay was then deployed within the preperitoneal space. The overlay was then secured to the pubic tubercle, conjoined tendon, and shelving edge of the inguinal ligament using a 0 Polysorb suture. A slit was made in the mesh in the mesh wrapped around the spermatic cord at the internal ring. This was secured to the shelving edge using the 0 Polysorb suture. The wrap was tight enough to allow only the passage of the tip of the index finger through the internal ring. Wounds were then irrigated with saline solution and suctioned dry. External oblique aponeurosis was then closed using a running 2-0 Polysorb suture. 5 mL of Zenrelef was then instilled below the fascia. Amanuel's fascia and dermis were then reapproximated using interrupted 3-0 Polysorb sutures. Skin was then closed using a running subcuticular 4-0 Polysorb suture. Steri-Strips, 2 x 2 gauze and Tegaderm were then applied. The patient tolerated the procedure well. Sponge, instrument, and needle counts reported as correct. The patient was transferred to PACU in stable condition.
[2024-09-05 13:15] VITALS: BP 154/96; PULSE 71; RESP 18; TEMP 36.1; O2SAT 97
[2024-09-05 13:20] VITALS: BP 145/94; PULSE 79; RESP 16; O2SAT 99
[2024-09-05 13:25] VITALS: BP 134/93; PULSE 94; RESP 17; O2SAT 96
[2024-09-05 13:30] VITALS: BP 139/79; PULSE 73; RESP 17; O2SAT 95
[2024-09-05 13:45] VITALS: BP 137/88; PULSE 80; RESP 17; O2SAT 96
[2024-09-05 14:00] VITALS: BP 136/85; PULSE 74; RESP 18; TEMP 36.2; O2SAT 95
== END 2024-09-05 14:41 | disposition home or self-care (01) ==
PROVIDERS: PCP Family Medicine; Visit Provider Surgery
PROC: (CPT 49505; principal; 2024-09-05 11:30)
DX: K40.90 Unilateral inguinal hernia, without obstruction or gangrene, not specified as recurrent (principal); E78.00 Pure hypercholesterolemia, unspecified; E66.3 Overweight; Z68.33 Body mass index [BMI] 33.0-33.9, adult; Z79.899 Other long term (current) drug therapy
CPT/HCPCS: 49505; 88302; C1781; C9088; J0690; J1100; J1885; J2003; J2250; J2371; J2405; J2704; J2795; J3010

== ENCOUNTER → 2024-09-05 09:13 | Outpatient (BNV) | payer BC, SELFPAY | PROVIDERS: PCP Family Medicine; Visit Provider Surgery | DX: K40.90 Unilateral inguinal hernia, without obstruction or gangrene, not specified as recurrent (principal) | CPT/HCPCS: 49505 ==

== ENCOUNTER 2024-09-13 12:47 | Outpatient (AMB) | payer BC, SELFPAY ==
--- NOTE | 2024-09-13 12:49 | MHC.OFFVIS ---
Vital Signs 09/13/24 12:58 Height 5 ft 8.5 in Weight 221 lb BMI 33.1 BP 158/96 H Blood Pressure Location Lt brachial Position Sitting Pulse 84 Intake Visit Reasons: S/P RIH w/mesh Intake Note: Patient is seen in office for post op assessment post Repair of right inguinal hernia. Pt c/o: feel a pinch left groin when standing, denies redness, discharge or other concerns surgery: 09/05/24 Senior Loan Officer Required: No Accompanied by: Self / Same As Patient Allergies No Known Allergies [No Known Allergies*] Allergy (Verified 09/13/24 13:00) HPI Comments Details: Patient returns 1 week following repair of a right inguinal hernia with mesh on 09/05/2024. Tolerated the procedure well and denies any ongoing symptoms. FOR[facility]LY [facility] Medical History Overweight (BMI 25.0-29.9) Hypercholesterolemia Surgical History History of right inguinal hernia repair (09/05/24) H/O colonoscopy Hx of vasectomy Hx of discectomy Hx of left inguinal hernia repair Hx laparoscopic cholecystectomy Family History Maternal Uncle Non-Hodgkin lymphoma Mother No problems noted. Father No problems noted. Brother No problems noted. Son No problems noted. Daughter No problems noted. 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 No evidence of infection or hernia recurrence. Skin Other: Warm, dry, no rash Neuro General: patient oriented x3 Assessment & Plan Assessment & Plan (1) Right inguinal hernia: Code(s): K40.90 - Unilateral inguinal hernia, without obstruction or gangrene, not specified as recurrent Category: Medical Plan 49-year-old male patient status post repair of a right inguinal hernia with mesh. He tolerated the procedure well the wounds are healing nicely without evidence of recurrence or infection. He should continue to avoid lifting greater than 10 lb and return approximately 4 weeks for follow-up examination. Coding Level of Care Code Global (32046) Diagnoses Right inguinal hernia K40.90
[2024-09-13 12:58] VITALS: BP 158/96; PULSE 84; BMI 33.1
== END 2024-09-13 13:06 | disposition home or self-care (01) ==
PROVIDERS: PCP Family Medicine; Visit Provider Surgery
DX: K40.90 Unilateral inguinal hernia, without obstruction or gangrene, not specified as recurrent (principal)
CPT/HCPCS: 99024

== ENCOUNTER → 2024-09-13 12:47 | Outpatient (BNVA) | payer BC, SELFPAY | PROVIDERS: PCP Family Medicine; Visit Provider Surgery ==

== ENCOUNTER 2024-11-23 07:45 | Outpatient (REF) | payer BC, SELFPAY ==
[2024-11-23 10:24] LABS: Appearance Urine Clear; Color Urine Yellow; Glucose Urine UA Negative (Negative); Leukocyte Esterase Urine Negative (Negative); Nitrite Urine Negative (Negative); PH 5.5 (5.0-9.0); Urine Blood Negative (Negative); Urine Ketones Negative (Negative); Urine Protein Negative (Neg-Trace)
[2024-11-23 10:30] LABS: Creatinine Urine 215.95 mg/dL; Microalbum/Creatinine Ratio Ur 6.9 ug/mg cr (<30)
[2024-11-23 11:14] LABS: Folate 13.4 ng/mL (> or = 4.0); Vitamin B12 720 pg/mL (200-900)
[2024-11-23 11:19] LABS: Alanine Aminotransferase 59 U/L (0-40); Albumin Level 4.4 g/dL (3.5-5.0); Alkaline Phosphatase 41 U/L (39-117); Anion Gap 10 (12-20); Aspartate Amino Transferase 38 U/L (5-37); Bilirubin Total 0.9 mg/dL (0.0-1.0); Blood Urea Nitrogen 16 mg/dL (9-16); Calcium 9.3 mg/dL (8.4-10.2); Carbon Dioxide 29 mmol/L (22-29); Chloride 106 mmol/L (96-108); Cholesterol 212 mg/dL (<200); Estimated Glomerular Filt Rate > 60; Glucose Fasting 103 mg/dL (60-99); HDL Cholesterol 37 mg/dL (>40); LDL Cholesterol Calculated 146 mg/dL (<100); Sodium 141 mmol/L (135-145); Total Protein 7.1 g/dL (6.5-8.0); Triglycerides 146 mg/dL (<150)
[2024-11-23 11:23] LABS: TSH reflex Free T4 2.34 uIU/mL (0.32-4.0)
== END 2024-11-23 07:46 | disposition home or self-care (01) ==
LOC: HO.HMGCLDS 07:45
PROVIDERS: PCP Family Medicine; Visit Provider Family Medicine
DX: Z00.00 Encounter for general adult medical examination without abnormal findings (principal); E53.8 Deficiency of other specified B group vitamins; E55.9 Vitamin D deficiency, unspecified; I10 Essential (primary) hypertension; Z12.5 Encounter for screening for malignant neoplasm of prostate
CPT/HCPCS: 36415; 80053; 80061; 81003; 82043; 82306; 82570; 82607; 82746; 84153; 84443

== ENCOUNTER 2024-11-29 15:28 | Outpatient (AMB) | payer BC, SELFPAY ==
--- NOTE | 2024-11-29 15:53 | MHC.PC.OV ---
Vital Signs 11/29/24 15:56 Height 5 ft 9 in Weight 215 lb BMI 31.7 BP 136/70 Blood Pressure Location Rt brachial Position Sitting Respiration 14 Pulse 81 Pulse Source Pulse Oximeter Temp 99.1 F Temp Source Oral Pulse Oximetry (%) 98 Oxygen Delivery Method Room Air Intake Visit Reasons: CPE with f/u labs and health maint. Due Diligence Coordinator Required: No Allergies No Known Allergies [No Known Allergies*] Allergy (Verified 11/29/24 15:54) Medication List - Last Reconciled 11/29/24 by Rasheed Mederos MD losartan 50 mg PO DAILY 90 days Tobacco use date assessed: 11/29/24 Dental Screening Dental Screen Date: 11/29/24 Did you have a dental visit in the last 12 months?: Yes Did you have a dental problem in the last 6 months where you did not have access to dental care?: No Was dental information given to patient?: No HPI CPE with f/u labs and health maint. HPI Details 49 y/o male presents for a CPE with f/u labs and health maintenance. Labs drawn 11/23/24. Reviewed labs with pt. Fasting glucose of 103. Elevated liver enzymes - AST 38, ALT 59. Triglycerides 146. TC 212. LDL 146. HDL low at 37. PSA 0.40. PFSH Medical History Overweight (BMI 25.0-29.9) Hypercholesterolemia Surgical History History of right inguinal hernia repair (09/05/24) H/O colonoscopy Hx of vasectomy Hx of discectomy Hx of left inguinal hernia repair Hx laparoscopic cholecystectomy Family History Maternal Uncle Non-Hodgkin lymphoma Mother No problems noted. Father No problems noted. Brother No problems noted. Son No problems noted. Daughter No problems noted. 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 1. Little interest or pleasure in doing things: not at all 2. Feeling down, depressed, or hopeless: not at all 3. Trouble falling or staying asleep, or sleeping too much: not at all 4. Feeling tired or having little energy: not at all 5. Poor appetite or overeating: not at all 6. Feeling bad about yourself - or that you are a failure or have let yourself or your family down: not at all 7. Trouble concentrating on things, such as reading the newspaper or watching television: not at all 8. Moving or speaking so slowly that other people could have noticed. Or the opposite - being so fidgety or restless that you have been moving around a lot more than usual: not at all 9. Thoughts that you would be better off or of hurting yourself in some way: not at all Total score: 0 Depression Screening Interpretation: Negative Depression Screening Done: Yes 57534 - PHQ-9 Billing: Yes Source: Developed by Drs. Noel Pascal, Radha Robertson, Rahul Brooks and colleagues, with an educational malika from [employer]. Thrive Questionnaire Date Thrive assessed: 11/29/24 I am a: Patient What is your living situation today?: I have a steady place to live Within the past 12 months, did the food you bought not last and you didn't have the money to get more?: Never true Within the past 12 months, did you worry whether your food would run out before you got money to buy more?: Never true Do you have trouble paying for medicines?: No Do you have trouble getting transportation to medical appointments?: No Do you have trouble paying your heating and electricity bill?: No Do you have trouble taking care of your child, family member or friend?: No Do you have trouble with day-to-day activities such as bathing, preparing meals, shopping, managing finances, etc.?: No Are you currently unemployed and looking for a job?: No Are you interested in more education?: No Please select the resources that you would like help with: None Currently or been in a relationship where the following occur: No concerns reported THRIVE Score: 0 AUDIT C Alcohol Use Questionnaire (AUDIT-C) 1. How often do you have a drink containing alcohol?: 2-3 times a week 2. How many drinks containing alcohol do you have on a typical day when you are drinking?: 1 or 2 3. How often do you have six or more drinks on one occasion?: Never Total Score: 3 Score Reviewed/Action Taken: Yes MONET-7 AMB Questionnaire MONET-7 Date MONET - 7 assessed: 11/29/24 Feeling nervous, anxious, or on edge: 0 = Not at all Not being able to stop or control worryin = Not at all Worrying too much about different things: 0 = Not at all Trouble relaxin = Not at all Being so restless that it is hard to sit still: 0 = Not at all Becoming easily annoyed or irritable: 0 = Not at all Feeling afraid as if something awful might happen: 0 = Not at all Total MONET-7 score (0-4 normal; 5-9 mild; 10-14 moderate; 15-21 severe): 0 Source: Developed by Drs. Noel Pascal, Radha Robertson, Rahul Brooks and colleagues, with an educational malika from [employer]. MONET-7 Assessment Billing MONET-7 Assessment Tool: MONET-7 Assessment 47232 Review of Systems Const Denies chills, Denies fatigue, Denies fever(s), Denies headache(s) and Denies weakness Eyes Denies change in vision ENT Denies dizziness, Denies headache(s), Denies hearing loss, Denies nasal congestion, Denies sinus pain, Denies sinus pressure and Denies sore throat Card Denies chest pain, Denies lightheadedness, Denies dyspnea and Denies other (palpitations) Resp Denies cough, Denies dyspnea and Denies wheezing GI Denies abdominal pain, Denies melena, Denies hematochezia, Denies change in bowel habits, Denies dyspepsia and Denies nausea Denies hematuria and Denies dysuria Musc Denies abnormal gait, Denies myalgias, Denies arthralgias, Denies numbness and Denies tingling Skin/Breast Denies rash, Denies unusual bruising and Denies wounds Neuro Denies abnormal gait, Denies dizziness, Denies headache(s), Denies memory loss, Denies numbness, Denies Sensory deficit (Neuro), Denies tingling and Denies weakness Psych Denies anxiety, Denies depression and Denies memory loss Endo Denies cold intolerance, Denies fatigue, Denies heat intolerance, Denies polydipsia and Denies polyuria Aakash/Lymph Denies easy bleeding and Denies easy bruising Aller/Immun Denies wheezing Physical exam (Primary Care) Vital Signs: Last Vital Signs Temp 99.1 F 11/29/24 15:56 Pulse 81 11/29/24 15:56 Resp 14 11/29/24 15:56 BP 136/70 11/29/24 15:56 Pulse Ox 98 11/29/24 15:56 Oxygen Delivery Method Room Air 11/29/24 15:56 BMI result Body Mass Index 31.7 Tobacco/Smoking Status: Tobacco use Status Tobacco use date assessed 11/29/24 11/29/24 16:00 Patient Tobacco Use Status Never used Tobacco 11/29/24 16:00 e-Cigarette/Vaping Use Never Used 11/29/24 16:00 PHQ-9: PHQ-9 Score PHQ-9: Total score 0 11/29/24 16:00 Depression Screening Interpretation: Negative Thrive Assessment: Date of Thrive Assessment Date Thrive assessed 11/29/24 11/29/24 16:00 Currently or been in a relationship where the following occur: No concerns reported Const General: no acute distress, well developed, alert and awake Nutritional Appearance: well nourished Orientation/consciousness: patient oriented x3 HENMT Head: Yes normocephalic and Yes atraumatic Ears: hearing grossly normal bilaterally and TM's normal bilaterally General nose exam: Normal external nose present and Normal nares present Mouth: Normal oral and palatal mucosa present and moist mucous membranes Teeth and gingiva: dentition normal Throat: Yes posterior oropharynx normal Eyes General: appearance normal, both eyes and all related structures Pupils: Equal, round and reactive pupils present and Pupil accommodation reflex normal EOM: EOMs intact bilaterally Neck Neck: Yes normal visual inspection, Yes no lymphadenopathy and Yes trachea midline Thyroid: Thyroid normal Carotids: no bruits Lymphatic: no lymphadenopathy noted Chest Chest palpation & inspection: normal inspection of the chest Resp Effort & Inspection: normal respiratory effort Auscultation: clear to auscultation bilaterally Cardio Rate: regular rate Rhythm: regular rhythm Heart sounds: S1 normal heart sound present, S2 normal heart sound present, no gallops, no murmurs and no rubs Bruits: no abdominal aortic bruits and no carotid bruits GI Palpation (GI): No Abdominal aortic bruit present, Soft to palpation, nontender, No hepatosplenomegaly present and No Rebound tenderness present Auscultation: normal bowel sounds General: Yes no CVA tenderness Back/Spine/Pelvis Back: no CVA tenderness Cervical Spine: cervical ROM normal and No Cervical spine tenderness Thoracic/Lumbar Spine: thoraco-lumbar ROM normal, No pain with thoraco-lumbar ROM, No thoracic spinal tenderness and No lumbar spinal tenderness Skin Lesions: no lesions Rashes: no rashes Trauma: no lacerations or abrasions Wounds: no wounds Nails: normal Neuro General: patient oriented x3 Cranial nerves: Yes Equal, round and reactive pupils present Cognition (Neuro): normal cognition Gait exam (Neuro): Normal gait present Motor exam (neuro): 5/5 motor strength present throughout Sensory Exam: No Sensory deficit (Neuro) Deep tendon reflexes (DTR's): Right patellar reflex intensity grade: 2+ and Left patellar reflex intensity grade: 2+ Extrem General: Yes normal to inspection and No edema Psych Appearance: grossly normal Affect: normal affect Attitude: cooperative Thought process: Normal thought process present Coding Level of Care Code Est Pt Level 3 (53251) Est Pt Prev Care 40-64y(26550) Diagnoses Physical exam, annual Z00.00 Hypertension I10 Hypercholesterolemia E78.00 Elevated liver enzymes R74.8 Colon cancer screening Z12.11 Screening for prostate cancer Z12.5 Additional Codes MONET-7 Assessment Billing - MONET-7 Assessment Tool: MONET-7 Assessment 62174 ([id number]) PHQ-9 - 84041 - PHQ-9 Billing: Yes ([id number]) Assessment & Plan Assessment & Plan (1) Physical exam, annual: Code(s): Z00.00 - Encounter for general adult medical examination without abnormal findings Category: Medical Plan: 49-year-old?male?presents?for?complete?physical?exam Encouraged?healthy?diet?with?active?lifestyle?and?plenty?of?exercise (2) Hypertension: Code(s): I10 - Essential (primary) hypertension Category: Medical Plan: Blood?pressures?are?consistently?high Start?losartan Work?on?weight?loss?and?exercise.??Watch?salt?and?sodium (3) Hypercholesterolemia: Code(s): E78.00 - Pure hypercholesterolemia, unspecified Category: Medical Plan: Lipids?are high. He?is?working?on?diet?low?in?saturated?fats?and?cholesterol.??Encouraged?further?weight?loss?exercise Will?recheck?at?a?subsequent?visit (4) Elevated liver enzymes: Code(s): R74.8 - Abnormal levels of other serum enzymes Category: Medical Plan: Liver?enzymes?are?elevated.??He?has?gained?about?20?lb?over?the?last few years. He?will?work?on?weight?loss,?good?hydration,?watch?Tylenol?and?alcohol Will?recheck?in?a?couple?of?months. If?liver?enzymes?are?the?same?higher,?will?check?an?ultrasound (5) Colon cancer screening: Comment: Index screening colonoscopy no GI complaints no family history GI cancer Code(s): Z12.11 - Encounter for screening for malignant neoplasm of colon Category: Medical Plan: Patient?notes?he?had?a?colonoscopy?at?[facility] Follow-up?with?[facility]?gastroenterology?as?recommended (6) Screening for prostate cancer: Code(s): Z12.5 - Encounter for screening for malignant neoplasm of prostate Category: Medical Plan: PSA?is?within?normal?limits Will?continue?annual?screening Orders: Orders Hemoglobin A1c Today R73.01 - Impaired fasting glucose Comprehensive [place]. Panel Fast Today R74.8 - Abnormal levels of other serum enzymes, Z00.00 - Encounter for general adult medical examination without abnormal findings Medications: New losartan 50 mg PO DAILY 90 days 90 tabs 3RF
[2024-11-29 15:56] VITALS: BP 136/70; PULSE 81; RESP 14; TEMP 37.3; O2SAT 98; BMI 31.7
== END 2024-11-29 16:32 | disposition home or self-care (01) ==
LOC: HO.HMCFM 15:29
PROVIDERS: PCP Family Medicine; Visit Provider Family Medicine
DX: Z00.00 Encounter for general adult medical examination without abnormal findings (principal); I10 Essential (primary) hypertension; E78.00 Pure hypercholesterolemia, unspecified; R74.8 Abnormal levels of other serum enzymes; Z12.11 Encounter for screening for malignant neoplasm of colon; Z12.5 Encounter for screening for malignant neoplasm of prostate

== ENCOUNTER → 2024-11-29 15:28 | Outpatient (BNVA) | payer BC, SELFPAY | PROVIDERS: PCP Family Medicine; Visit Provider Family Medicine | DX: Z00.00 Encounter for general adult medical examination without abnormal findings (principal); I10 Essential (primary) hypertension; E78.00 Pure hypercholesterolemia, unspecified; R74.8 Abnormal levels of other serum enzymes | CPT/HCPCS: 96127 ==

== ENCOUNTER 2025-03-25 07:51 | Outpatient (REF) | payer OTHER, SELFPAY ==
--- OUTSIDE RECORDS SUMMARY | 2025-03-25 07:53 | XMS_ITS | Data Portability ---
Author Organization [facility], , [facility] Address [address] [place] [address] Assessment No assessment recorded. Plan of Treatment [...] and Address Organization Details Recorded Time Sciatica [id number] Active 004 Not Available [facility] 3 03:12:28 Problem Notes None recorded. Medical Equipment None Reported. Vitals None Recorded Social History None recorded. Functional Status None recorded. Mental Status None recorded. Family History Nothing Reported. Medical History No medical history recorded. Past Encounters Encounter ID Performer Location Encounter Start Date Encounter Closed Date Diagnosis/Indication Diagnosis SNOMED-CT Code Diagnosis ICD10 Code Diagnosis Note [id number] [facility], [address] [address] 07/08/2004 08:56:21 07/09/2004 08:30:03 [id number] [facility], [address] [address] 07/13/2004 08:20:23 07/13/2004 08:34:18 [id number] [facility], [address] [address] 07/15/2004 13:57:45 09/18/2008 02:02:29 [id number] [facility], [address] [address] 07/20/2004 08:08:17 07/20/2004 08:36:34 [id number] Marcel Gray , PT Physical Therapy, [facility] [address] [place] [address] 07/22/2004 08:32:24 09/18/2008 02:02:29 Health Concerns Section Related Observation LastModified by Organization Detai ls LastModified Time None Recorded Concern Status LastModified by Organization Details LastModified Time None Recorded Advance Directives Directive None Recorded Payers Insurance Date Sequence Insurance Name Policy Number Policy Howard Covered Member ID Howard Member ID Guarantor Name 07/22/2004 2 [employer] [id number] Marco Anderson [id number] Marco Anderson 02/28/2013 1 [employer] (O) [id number] Marco Anderson [id number] Marco Anderson 02/17/2015 1 [facility] - OPEN ACCESS - [facility] ONLY (POS) [id number] Marco Anderson [id number] Marco Anderson 04/03/2014 1 [employer] (O) [id number] Marco Anderson [id number] Marco Anderson
[2025-03-25 10:28] LABS: Hemoglobin A1C 136.9608 umol/L; Total Hemoglobin (HGBA1C) 3932.1324 umol/L
[2025-03-25 10:55] LABS: Alanine Aminotransferase 176 U/L (0-40); Albumin Level 4.3 g/dL (3.5-5.0); Alkaline Phosphatase 35 U/L (39-117); Anion Gap 11 (12-20); Aspartate Amino Transferase 294 U/L (5-37); Blood Urea Nitrogen 17 mg/dL (9-16); Calcium 8.6 mg/dL (8.4-10.2); Carbon Dioxide 27 mmol/L (22-29); Chloride 107 mmol/L (96-108); Estimated Glomerular Filt Rate > 60; Potassium 3.8 mmol/L (3.3-5.1); Sodium 141 mmol/L (135-145); Total Protein 6.4 g/dL (6.5-8.0)
== END 2025-03-25 07:52 | disposition home or self-care (01) ==
LOC: HO.HMGCLDS 07:51
PROVIDERS: PCP Family Medicine; Visit Provider Family Medicine
DX: Z00.00 Encounter for general adult medical examination without abnormal findings (principal); R73.01 Impaired fasting glucose; R74.8 Abnormal levels of other serum enzymes
CPT/HCPCS: 36415; 80053; 83036

== ENCOUNTER 2025-03-29 11:17 | Outpatient (AMB) | payer OTHER, SELFPAY ==
--- NOTE | 2025-03-29 11:43 | MHC.PC.OV ---
Vital Signs 03/29/25 11:49 Height 5 ft 9 in Weight 213 lb 8 oz BMI 31.5 BP 120/60 Blood Pressure Location Rt brachial Position Sitting Respiration 16 Pulse 79 Pulse Source Pulse Oximeter Temp 98.2 F Temp Source Oral Pulse Oximetry (%) 97 Oxygen Delivery Method Room Air Intake Visit Reasons: f/u liver enzymes, labs Intake Note: patient is scheduled for lab review Billing And Insurance Coordinator Required: No Allergies No Known Allergies (No Known Allergies*) Allergy (Verified 03/29/25 11:44) Tobacco use date assessed: 11/29/24 Dental Screening Dental Screen Date: 11/29/24 HPI f/u liver enzymes, labs HPI Details 50 y/o male presents to f/u liver enzymes, labs. Had started him on losartan. Labs drawn 03/25/25. Reviewed labs with pt. AST worsened from 38 to 294. ALT 59 to 176. Blood pressure today 120/60, 79p. He is on losartan 50mg daily. HPI Comments History of Present Illness Details Documentation assistance for Rasheed Mederos MD, was provided by Emigdio Petersen,? Aircraft Inspection Record Clerk on 03/29/2025 at 11:59 AM [place]. I, Dr. Mederso, have read, observed, and verified documentation. ?? [facility] [place] Medical History (Updated 11/29/24 @ 16:04 by Emigdio Petersen) Overweight (BMI 25.0-29.9) Hypercholesterolemia Surgical History History of right inguinal hernia repair (09/05/24) H/O colonoscopy Hx of vasectomy Hx of discectomy Hx of left inguinal hernia repair Hx laparoscopic cholecystectomy Family History Maternal Uncle Non-Hodgkin lymphoma Mother No problems noted. Father No problems noted. Brother No problems noted. Son No problems noted. Daughter No problems noted. 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 Cognitive needs: No Hearing needs: No Vision needs: Yes Questionnaire Thrive Questionnaire Date Thrive assessed: 11/29/24 I am a: Patient What is your living situation today?: I have a steady place to live Within the past 12 months, did the food you bought not last and you didn't have the money to get more?: Never true Within the past 12 months, did you worry whether your food would run out before you got money to buy more?: Never true Do you have trouble paying for medicines?: No Do you have trouble getting transportation to medical appointments?: No Do you have trouble paying your heating and electricity bill?: No Do you have trouble taking care of your child, family member or friend?: No Do you have trouble with day-to-day activities such as bathing, preparing meals, shopping, managing finances, etc.?: No Are you currently unemployed and looking for a job?: No Are you interested in more education?: No Please select the resources that you would like help with: None Currently or been in a relationship where the following occur: No concerns reported THRIVE Score: 0 MONET-7 AMB Questionnaire MONET-7 Date MONET - 7 assessed: 11/29/24 Source: Developed by Drs. Noel Pascal, Radha Robertson, Rahul Brooks and colleagues, with an educational malika from [employer]. Review of Systems Const Denies chills, Denies fatigue, Denies fever(s), Denies headache(s) and Denies weakness ENT Denies dizziness and Denies headache(s) Card Denies dyspnea Resp Denies cough, Denies dyspnea, Denies wheezing and Denies other (shortness of breath) Musc Denies numbness and Denies tingling Neuro Denies dizziness, Denies headache(s), Denies numbness, Denies tingling and Denies weakness Psych Denies anxiety and Denies depression Endo Denies fatigue Aller/Immun Denies wheezing Physical exam (Primary Care) Vital Signs: Last Vital Signs Temp 98.2 F 03/29/25 11:49 Pulse 79 03/29/25 11:49 Resp 16 03/29/25 11:49 BP 120/60 03/29/25 11:49 Pulse Ox 97 03/29/25 11:49 Oxygen Delivery Method Room Air 03/29/25 11:49 BMI result Body Mass Index 31.5 Tobacco/Smoking Status: Tobacco use Status Tobacco use date assessed 11/29/24 03/29/25 11:53 Patient Tobacco Use Status Never used Tobacco 03/29/25 11:53 e-Cigarette/Vaping Use Never Used 03/29/25 11:53 Thrive Assessment: Date of Thrive Assessment Date Thrive assessed 11/29/24 03/29/25 11:53 Currently or been in a relationship where the following occur: No concerns reported Const General: well developed; No acute distress Nutritional Appearance: well nourished and obese Orientation/consciousness: patient oriented x3 HENMT Head: Yes normocephalic and Yes atraumatic Eyes General: appearance normal, both eyes and all related structures Pupils: Equal, round and reactive pupils present EOM: EOMs intact bilaterally Resp Effort & Inspection: normal respiratory effort Neuro General: patient oriented x3 and gait normal Cranial nerves: Yes Equal, round and reactive pupils present Psych Affect: normal affect Coding Level of Care Code Est Pt Level 4 (68883) Diagnoses Hypertension I10 Elevated liver enzymes R74.8 Hypercholesterolemia E78.00 Assessment & Plan Assessment & Plan (1) Hypertension: Code(s): I10 - Essential (primary) hypertension Category: Medical Plan: Blood pressure is improved on losartan. Patient has a log today showing blood pressure is well controlled at home as well He notes that he is exercising more and stress has improved so he is wondering if he can discontinue the medication Advised him to try breaking in half and checking his blood pressures (2) Elevated liver enzymes: Code(s): R74.8 - Abnormal levels of other serum enzymes Category: Medical Plan: Liver enzymes have increased significantly. Patient says he has been working on cutting back on glasses wine He is working on weight loss but has only lost couple lb since last visit Encouraged weight loss Will check ultrasound liver with elastography Encouraged decreasing alcohol intake or cessation Encouraged good hydration Will follow-up a couple of months or sooner if indicated workup. (3) Hypercholesterolemia: Code(s): E78.00 - Pure hypercholesterolemia, unspecified Category: Medical Plan: Consultation on a low cholesterol diet. Encouraged weight loss as well Will recheck lipids prior next visit review Orders: Orders Comprehensive Met. Panel Today R74.8 - Abnormal levels of other serum enzymes US abdomen viramontes w elastography Today R74.8 - Abnormal levels of other serum enzymes Lipid Panel Today E78.00 - Pure hypercholesterolemia, unspecified, Z00.00 - Encounter for general adult medical examination without abnormal findings Hepatitis B,C Profile Today Z11.3 - Encounter for screening for infections with a predominantly sexual mode of transmission Complete Blood Count Auto Diff Today R74.8 - Abnormal levels of other serum enzymes, Z00.00 - Encounter for general adult medical examination without abnormal findings Gamma Glutamyl Transpeptidase Today R74.8 - Abnormal levels of other serum enzymes
[2025-03-29 11:49] VITALS: BP 120/60; PULSE 79; RESP 16; TEMP 36.8; O2SAT 97; BMI 31.5
== END 2025-03-29 12:11 | disposition home or self-care (01) ==
LOC: HO.HMCFM 11:18
PROVIDERS: PCP Family Medicine; Visit Provider Family Medicine
DX: I10 Essential (primary) hypertension (principal); R74.8 Abnormal levels of other serum enzymes; E78.00 Pure hypercholesterolemia, unspecified